=== PATIENT | female | born 1995 | race Two or more races ===

== ENCOUNTER 2018-04-16 18:41 | Emergency (ER) | payer OTHER ==
[~2018-04-16] VITALS: Ht 167.6 cm; Wt 57.9 kg
[2018-04-16 18:45] VITALS: BP 125/78
[2018-04-16] MEDS ORDERED: IV NORMAL SALINE 1,000ML 1,000 ML IV ONE (18:45)
[2018-04-16] MEDS ORDERED: ONDANSETRON PF 4 MG/2 ML VIAL. IV ONE (18:45)
[2018-04-16] MEDS ORDERED: IOHEXOL 300 MG/ML 75 ML VIAL. IV ONE (19:30)
[2018-04-16 19:33] LABS: BASO % 0 % (0-3); EOS % 0 % (0-3); HEMATOCRIT 39.5 % (36.0-47.0); HEMOGLOBIN 13.5 g/dL (12.0-15.5); LYMPH # 0.5 x10^3/uL (1.0-4.8); LYMPH % 6 % (24-48); MEAN CORPUSCULAR HEMOGLOBIN 29 pg (25-35); MEAN CORPUSCULAR HGB CONC 34 g/dL (31-37); MEAN CORPUSCULAR VOLUME 85 fL (79-100); MONO # 0.6 x10^3/uL (0.0-1.1); MONO % 8 % (0-9); NEUT # 6.9 x10^3uL (1.8-7.7); NEUT % 86 % (31-73); PLATELET COUNT 186 x10^3/uL (140-400); RED BLOOD COUNT 4.68 x10^6/uL (3.50-5.40); RED CELL DISTRIBUTION WIDTH 13.1 % (11.5-14.5)
[2018-04-16 19:47] LABS: ALBUMIN 4.4 g/dL (3.4-5.0); CALCIUM 9.3 mg/dL (8.5-10.1); GFR 70.7; POTASSIUM 3.5 mmol/L (3.5-5.1); TOTAL BILIRUBIN 1.1 mg/dL (0.2-1.0); TOTAL PROTEIN 8.6 g/dL (6.4-8.2)
[2018-04-16 19:52] LABS: BACTERIA,URINE MOD /HPF (0-FEW); BILIRUBIN,URINE NEG (NEG); CLARITY,URINE HAZY; COLOR,URINE YELLOW; GLUCOSE,URINE NEG (NEG); NITRITE,URINE NEG (NEG); SQUAMOUS EPITHELIAL CELL,UR MANY /LPF; UROBILINOGEN,URINE 0.2 mg/dL (0.2 mg/dL)
--- NOTE | 2018-04-16 20:17 | RAD ---
PQRS Compliance statement: One or more of the following individualized dose reduction techniques were utilized for this examination: 1. Automated exposure control. 2. Adjustment of the mA and/or kV according to patient size. 3. Use of iterative reconstruction technique. Indication:RLQ ABD PAIN, R/O APPENDICITIS. TECHNIQUE: CT abdomen and pelvis with IV contrast with multiplanar reformats. COMPARISON: None FINDINGS: Heart is normal in size. No pericardial or pleural effusion. Clear lung bases. Liver, spleen, gallbladder, pancreas, adrenals and kidneys are within normal limits. Appendix is not confidently visualized. No right lower quadrant inflammatory changes. No free pelvic fluid or ascites. No bowel obstruction. Anteverted uterus. Urinary bladder within normal limits. No pneumoperitoneum. No suspicious bony lesion. IMPRESSION: 1. Appendix is not confidently seen. No right lower quadrant inflammatory changes or fluid collection suggest acute inflammatory process. No bowel obstruction. 2. No nephrolithiasis or hydronephrosis. Electronically signed by: Marshall Bhatia DO (04/16/2018 8:14 PM) [facility]
--- NOTE | 2018-04-16 20:37 | PHYS DOC ---
Past History Past Medical History: UTI Past Surgical History: No Surgical History Alcohol Use: None Drug Use: None Adult General Chief Complaint Chief Complaint: ABDOMINAL PAIN HPI HPI 22-year-old female presents with right lower quadrant abdominal pain. Patient was referred to the ER from her primary physician. She was reported to have a fever of 102 and right lower quadrant tenderness. He was concerned for appendicitis. The patient tells me that she has had right sided and right lower quadrant pain for the last 2 days. It is a deep cramping pain. It had increased in intensity today. She denies fever or chills. She denies constipation or urinary complaints. She denies vaginal discharge. Review of Systems Review of Systems Constitutional: Denies fever or chills [] Eyes: Denies change in visual acuity, redness, or eye pain [] HENT: Denies nasal congestion or sore throat [] Respiratory: Denies cough or shortness of breath [] Cardiovascular: No additional information not addressed in HPI [] GI: Abdominal pain [] : Denies dysuria or hematuria [] Musculoskeletal: Denies back pain or joint pain [] Integument: Denies rash or skin lesions [] Neurologic: Denies headache, focal weakness or sensory changes [] Endocrine: Denies polyuria or polydipsia [] All other systems were reviewed and found to be within normal limits, except as documented in this note. Current Medications Current Medications Current Medications Medications (Trade) Dose Ordered Sig/Leena Start Time Stop Time Status Last Admin Dose Admin Iohexol (Omnipaque 300 Mg/ml) 75 ml 1X ONCE 04/16/18 19:30 04/16/18 19:31 DC 04/16/18 19:40 75 ML Ondansetron HCl (Zofran) 4 mg 1X ONCE 04/16/18 18:45 04/16/18 19:31 DC Sodium Chloride 1,000 ml @ 1,000 mls/hr 1X ONCE 04/16/18 18:45 04/16/18 19:44 DC 04/16/18 19:06 1,000 MLS/HR Allergies Allergies Allergies Coded Allergies Type Severity Reaction Last Updated Verified No Known Drug Allergies 04/16/18 No Physical Exam Physical Exam Constitutional: Well developed, well nourished, no acute distress, non-toxic appearance. [] HENT: Normocephalic, atraumatic, bilateral external ears normal, oropharynx moist, no oral exudates, nose normal. [] Eyes: PERRLA, EOMI, conjunctiva normal, no discharge. [] Neck: Normal range of motion, no tenderness, supple, no stridor. [] Cardiovascular:Heart rate regular rhythm, no murmur [] Lungs & Thorax: Bilateral breath sounds clear to auscultation [] Abdomen: Right lower quadrant tenderness, no rebound, no guarding.[] Skin: Warm, dry, no erythema, no rash. [] Back: No tenderness, no CVA tenderness. [] Extremities: No tenderness, no cyanosis, no clubbing, ROM intact, no edema. [] Neurologic: Alert and oriented X 3, normal motor function, normal sensory function, no focal deficits noted. [] Psychologic: Affect normal, judgement normal, mood normal. [] Current Patient Data Vital Signs Vital Signs Date Time Temp Pulse Resp B/P (MAP) Pulse Ox O2 Delivery O2 Flow Rate FiO2 04/16/18 18:45 99.4 95 18 100 Room Air Lab Results Laboratory Tests Test 04/16/18 18:30 04/16/18 19:11 POC Urine HCG, Qualitative hcg negative (Negative) White Blood Count 8.0 x10^3/uL (4.0-11.0) Red Blood Count 4.68 x10^6/uL (3.50-5.40) Hemoglobin 13.5 g/dL (12.0-15.5) Hematocrit 39.5 % (36.0-47.0) Mean Corpuscular Volume 85 fL (79-100) Mean Corpuscular Hemoglobin 29 pg (25-35) Mean Corpuscular Hemoglobin Concent 34 g/dL (31-37) Red Cell Distribution Width 13.1 % (11.5-14.5) Platelet Count 186 x10^3/uL (140-400) Neutrophils (%) (Auto) 86 % (31-73) H Lymphocytes (%) (Auto) 6 % (24-48) L Monocytes (%) (Auto) 8 % (0-9) Eosinophils (%) (Auto) 0 % (0-3) Basophils (%) (Auto) 0 % (0-3) Neutrophils # (Auto) 6.9 x10^3uL (1.8-7.7) Lymphocytes # (Auto) 0.5 x10^3/uL (1.0-4.8) L Monocytes # (Auto) 0.6 x10^3/uL (0.0-1.1) Eosinophils # (Auto) 0.0 x10^3/uL (0.0-0.7) Basophils # (Auto) 0.0 x10^3/uL (0.0-0.2) Urine Collection Type Unknown Urine Color Yellow Urine Clarity Hazy Urine pH 5.5 Urine Specific [place] 1.020 Urine Protein Trace (NEG-TRACE) Urine Glucose (UA) Neg mg/dL (NEG) Urine Ketones (Stick) >=160 mg/dL (NEG) Urine Blood Small (NEG) Urine Nitrite Neg (NEG) Urine Bilirubin Neg (NEG) Urine Urobilinogen Dipstick 0.2 mg/dL (0.2 mg/dL) Urine Leukocyte Esterase Neg (NEG) Urine RBC 1-2 /HPF (0-2) Urine WBC 5-10 /HPF (0-4) Urine Squamous Epithelial Cells Many /LPF Urine Bacteria Mod /HPF (0-FEW) Urine Mucus Marked /LPF Sodium Level 132 mmol/L (136-145) L Potassium Level 3.5 mmol/L (3.5-5.1) Chloride Level 98 mmol/L (98-107) Carbon Dioxide Level 19 mmol/L (21-32) L Anion Gap 15 (6-14) H Blood Urea Nitrogen 14 mg/dL (7-20) Creatinine 1.0 mg/dL (0.6-1.0) Estimated GFR (Cockcroft-Gault) 70.7 BUN/Creatinine Ratio 14 (6-20) Glucose Level 76 mg/dL (70-99) Calcium Level 9.3 mg/dL (8.5-10.1) Total Bilirubin 1.1 mg/dL (0.2-1.0) H Aspartate Amino Transferase (AST) 14 U/L (15-37) L Alanine Aminotransferase (ALT) 15 U/L (14-59) Alkaline Phosphatase 83 U/L (46-116) Total Protein 8.6 g/dL (6.4-8.2) H Albumin 4.4 g/dL (3.4-5.0) Albumin/Globulin Ratio 1.0 (1.0-1.7) EKG EKG [] Radiology/Procedures Radiology/Procedures [] Impressions: PQRS Compliance statement: One or more of the following individualized dose reduction techniques were utilized for this examination: 1. Automated exposure control. 2. Adjustment of the mA and/or kV according to patient size. 3. Use of iterative reconstruction technique. Indication:RLQ ABD PAIN, R/O APPENDICITIS. TECHNIQUE: CT abdomen and pelvis with IV contrast with multiplanar reformats. COMPARISON: None FINDINGS: Heart is normal in size. No pericardial or pleural effusion. Clear lung bases. Liver, spleen, gallbladder, pancreas, adrenals and kidneys are within normal limits. Appendix is not confidently visualized. No right lower quadrant inflammatory changes. No free pelvic fluid or ascites. No bowel obstruction. Anteverted uterus. Urinary bladder within normal limits. No pneumoperitoneum. No suspicious bony lesion. IMPRESSION: 1. Appendix is not confidently seen. No right lower quadrant inflammatory changes or fluid collection suggest acute inflammatory process. No bowel obstruction. 2. No nephrolithiasis or hydronephrosis. Electronically signed by: Marshall Dudley DO (04/16/2018 8:14 PM) [facility] DICTATED AND SIGNED BY: MARSHALL DUDLEY DO DATE: 04/16/182004 CC: LIO CHEN DO; ANSELMO BOWMAN MD ~ Course & Med Decision Making Course & Med Decision Making Pertinent Labs and Imaging studies reviewed. (See chart for details) On arrival to the ED, the patient did not have a fever. She does have right lower quadrant abdominal pain with radiation to her back. Her labs are unremarkable. She is not . Her CT scan is negative for acute findings. Her urinalysis is negative for nitrite and leukocyte esterase. I do not have a definitive reason for the patient's pain at this time. It is possible it is musculoskeletal. It is also possible it is gynecological in origin. I have shared these results with the patient and she is reassured. She is stable for discharge at this time. [] Dragon Disclaimer Dragon Disclaimer This electronic medical record was generated, in whole or in part, using a voice recognition dictation system. Departure Departure: Referrals: ANSELMO BOWMAN MD (PCP) LIO CHEN DO Apr 16, 2018 20:37
[2018-04-16] MEDS ORDERED: KETOROLAC 30 MG/ML VIAL. IV ONE (20:45)
== END 2018-04-16 20:55 | disposition home or self-care (01) ==
LOC: ER 18:41
DX: R10.31 Right lower quadrant pain (principal); R50.9 Fever, unspecified; Z87.440 Personal history of urinary (tract) infections
CPT/HCPCS: 36415; 74177; 80053; 81001; 81025; 85025; 87086; 96374; 99285; J1885; Q9967; J7030